=== PATIENT | male | born 1995 | race Caucasian/White ===

== ENCOUNTER 2017-06-08 12:26 | Emergency (ER) | payer OTHER ==
[2017-06-08 12:51] VITALS: BP 125/74; PULSE 73; TEMP 98.4; BMI 18.6
[2017-06-08] MEDS ORDERED: AZITHROMYCIN 1 GM PACKET PO ONE (13:42)
--- NOTE | 2017-06-08 13:48 | PDOC ---
History of Present Illness - General Chief Complaint: Pain Stated Complaint: PAIN Time Seen by Provider: 06/08/17 13:30 History Source: Patient Exam Limitations: No Limitations - History of Present Illness Travel History: No Initial Comments: 06/08/17 13:43 21 yr male states he had anal sex one week ago has continued pain, constipation and some mucous discharge. pt denies abd pain neg nvd neg fever. pt has history of multiple STD's was treated for syphilis last month . Timing/Duration: reports: constant Past History - Past Medical History Allergies/Adverse Reactions: Allergies Allergy/AdvReac Type Severity Reaction Status Date / Time No Known Allergies Allergy Verified 06/08/17 12:48 Home Medications: Ambulatory Orders Bisacodyl [Dulcolax] 5 mg PO DAILY #14 tablet.dr 06/08/17 Hydrocortisone Acetate [Anusol Hc Suppository -] 25 mg RC BID #10 supp.rect Other medical history: none - Suicide/Smoking/Psychosocial Hx Anxiety: No Suicidal Ideation: No Smoking History: Current every day smoker Have you smoked in the past 12 months: Yes Number of Cigarettes Smoked Daily: 6 Information on smoking cessation initiated: Yes 'Breaking Loose' booklet given: 06/08/17 Hx Alcohol Use: No Drug/Substance Use Hx: No Substance Use Type: None *Physical Exam - Vital Signs Last Vital Signs Temp Pulse Resp BP Pulse Ox 98.4 F 73 18 125/74 100 06/08/17 12:49 06/08/17 12:49 06/08/17 12:49 06/08/17 12:49 06/08/17 12:49 - Physical Exam HEENT: positive: EOMI, RICKEY, Normal ENT Inspection, Normal Voice, TMs Normal, Pharynx Normal Neck: positive: Supple Respiratory/Chest: positive: Lungs Clear, Normal Breath Sounds Cardiovascular: positive: Regular Rhythm, Regular Rate Gastrointestinal/Abdominal: positive: Normal Bowel Sounds, Soft. negative: Tender Male Genitalia: positive: normal genitalia. negative: discharge, testicular tenderness Rectal Exam: positive: normal rectal tone, other (scant amount of mucous clear yellow , no bleeding , no mass) Musculoskeletal: positive: Normal Inspection Extremity: positive: Normal Capillary Refill, Normal Inspection, Normal Range of Motion Integumentary: positive: Normal Color, Dry, Warm Neurologic: positive: Fully Oriented, Alert, Normal Mood/Affect, Normal Response , Motor Strength 5/5 Medical Decision Making - Medical Decision Making 06/08/17 14:52 cc: anal pain and discharge after having anal sex last week pt has history of std's in the past. pt denies abd pain has sex with other men will check for HIV, std's 06/08/17 15:02 I have discussed in detail the results of HIV test, pt is to follow at the [facility] for follow up pt agrees with plan all questions asked and answered. 06/11/17 07:09 *DC/Admit/Observation/Transfer Diagnosis at time of Disposition: Engages in insertive anal sexual practice, Possible exposure to STD, Anal discharge Constipation Qualifiers: Constipation type: other constipation type Qualified Code(s): K59.09 - Other constipation - Discharge Dispostion Disposition: HOME Condition at time of disposition: Good - Prescriptions Prescriptions: Hydrocortisone Acetate [Anusol Hc Suppository -] 25 mg RC BID #10 supp.rect Bisacodyl [Dulcolax] 5 mg PO DAILY #14 tablet.dr - Referrals Referrals: [facility] [Provider Group] [facility] [Provider Group] - Patient Instructions Printed Discharge Instructions: HIV Antibody Additional Instructions: 06/08/17 1. As discussed, a screening test for the HIV virus was performed today as per [facility] requirements. The preliminary results of your HIV test are Positive, which means you may have HIV. 2. The blood sample that was obtained will be sent out for further testing and confirmation. A confirmed Positive result is indicative of HIV infection, which is currently a lifelong condition. 3. As discussed, all test results are completely confidential. The results of your testing will not be released without your prior authorization. The law protects you from discrimination based on your HIV status. 4. As discussed, there are many benefits to antiretroviral therapy (ART) including suppressing the viral load. 5. As per the [facility] Department of Health, we have arranged for a follow-up appointment for medical care given your preliminary HIV positive results. If you were previously HIV positive and lost access to medical care, please use this referral as it is important to restart medical care. 6. As discussed, you must immediately adopt behavior changes to prevent HIV transmission to others (avoid unprotected sex or needle-sharing). 7. By law, any sex or needle-sharing partners that may have been exposed to HIV must be notified and they need to be tested. At risk partners can seek testing from their Primary Care Providers or they can go to https:// special delivery worker.aids.gov/ - Find HIV Testing Sites & Care Services - AIDS.gov. Enter a zip code to find a service facility near them. use the suppository as prescribed take dulcolax as prescribed for constipation drink at least 2 liters of water always use condoms during sexual activity follow with the [facility] for follow up this week if symptoms worsen or persist return to ER if any bloody diarrhea vomiting , severe pain or other concerns
[2017-06-08 14:06] LABS: URINE APPEARANCE SLCLOUDY; URINE BILIRUBIN NEGATIVE (NEGATIVE); URINE BLOOD NEGATIVE (NEGATIVE); URINE COLOR AMBER; URINE GLUCOSE (UA) NEGATIVE (NEGATIVE); URINE KETONE NEGATIVE (NEGATIVE); URINE LEUK ESTERASE NEGATIVE (NEGATIVE); URINE NITRITE NEGATIVE (NEGATIVE); URINE PROTEIN NEGATIVE (NEGATIVE)
[2017-06-08 14:48] LABS: HIV 1 AGp24 NEGATIVE
[2017-06-08 14:50] LABS: HIV 1 & 2 AB PRELIMINARY POSITIVE
[2017-06-10 08:10] LABS: CHLA.TRACHOMATI Negative (Negative)
== END 2017-06-08 15:08 | disposition home or self-care (01) ==
LOC: JERFT 12:26
DX: K62.89 Other specified diseases of anus and rectum (principal); K59.00 Constipation, unspecified; Z11.3 Encounter for screening for infections with a predominantly sexual mode of transmission
CPT/HCPCS: 36415; 80074; 81003; 87086; 87389; 87491; 87591; 99281-25

== ENCOUNTER 2017-06-13 08:56 | Emergency (ER) | payer OTHER ==
[2017-06-13 09:24] VITALS: TEMP 98; BMI 18.6
--- NOTE | 2017-06-13 10:01 | PDOC ---
History of Present Illness - General Chief Complaint: Pain Stated Complaint: PERSONAL Time Seen by Provider: 06/13/17 09:39 Past History - Past Medical History Allergies/Adverse Reactions: Allergies Allergy/AdvReac Type Severity Reaction Status Date / Time No Known Allergies Allergy Verified 06/13/17 09:16 Home Medications: Ambulatory Orders Bisacodyl [Dulcolax] 5 mg PO DAILY #14 tablet.dr 06/08/17 Hydrocortisone Acetate [Anusol Hc Suppository -] 25 mg RC BID #10 supp.rect Asthma: Yes Psychiatric Problems: Yes (depression, bipolar) - Suicide/Smoking/Psychosocial Hx Smoking History: Current every day smoker Have you smoked in the past 12 months: Yes Number of Cigarettes Smoked Daily: 9 Information on smoking cessation initiated: Yes 'Breaking Loose' booklet given: 06/13/17 Hx Alcohol Use: Yes Drug/Substance Use Hx: No Substance Use Type: None *Physical Exam - Vital Signs Last Vital Signs Temp Pulse Resp BP Pulse Ox 98 F 68 20 109/63 100 06/13/17 09:17 06/13/17 09:17 06/13/17 09:17 06/13/17 09:17 06/13/17 09:17
--- NOTE | 2017-06-13 10:40 | PDOC ---
Attending Attestation - Resident Resident Name: JosraePorter - ED Attending Attestation I have performed the following: I have examined & evaluated the patient, The case was reviewed & discussed with the resident, I agree w/resident's findings & plan, Exceptions are as noted - HPI HPI: 21 yo M recently diagnosed with HIV (has outpatient f/u in [facility] on 06/16) presenting with anal pain and discharge. He states he had anal intercourse, suspected a tear. Denies any bleeding. He has only appreciated some white discharge. He was tested for GC/Chlamydia on prior ED visit, negative. Denies abd pain, fever, chills. - Physicial Exam PE: GENERAL: Awake, alert, and fully oriented, in no acute distress HEAD: No signs of trauma EYES: PERRLA, EOMI, sclera anicteric, conjunctiva clear ENT: Auricles normal inspection, hearing grossly normal, nares patent, oropharynx clear without exudates. Moist mucosa NECK: Normal ROM, supple, no lymphadenopathy, JVD, or masses LUNGS: Breath sounds equal, clear to auscultation bilaterally. No wheezes, and no crackles HEART: Regular rate and rhythm, normal S1 and S2, no murmurs, rubs or gallops ABDOMEN: Soft, nontender, normoactive bowel sounds. No guarding, no rebound. No masses EXTREMITIES: Normal range of motion, no edema. No clubbing or cyanosis. No cords , erythema, or tenderness NEUROLOGICAL: Cranial nerves II through XII grossly intact. Normal speech, normal gait SKIN: Warm, Dry, normal turgor, no rashes or lesions noted. - Medical Decision Making CT pelvis obtained to r/o abscess. Results reviewed with Dr. Faust. As the abscess appears to already be draining, there is no acute management. Recommended PO augmentin. Outpatient f/u.
--- NOTE | 2017-06-13 10:59 | PDOC ---
History of Present Illness - General Chief Complaint: Pain Stated Complaint: PERSONAL Time Seen by Provider: 06/13/17 09:39 History Source: Patient Exam Limitations: No Limitations - History of Present Illness Initial Comments: 06/13/17 10:51 The patient is a 21M with a PMH of HIV who presents with anal pain and discharge. The patient states that he had anal sex with a new partner and thinks that he was torn. He also states that there is a white discharge that is coming out of his rectum. He was discharged from our facility within the past week and was treated for suspected GC/Chlamydia. He denies penile discharge, dysuria. This has never happened before. He has previously had chlamydia and it presented the same. GC/Chla testing negative when presented to [facility]. The discharge has been constant since friday and has not gotten better. He has an appointment at the [facility] Friday. He was also diagnosed with HIV on his last presentation. Soc: transgender; smokes 4 blunts a day and recently started drinking as a coping mechanism Past History - Past Medical History Allergies/Adverse Reactions: Allergies Allergy/AdvReac Type Severity Reaction Status Date / Time No Known Allergies Allergy Verified 06/13/17 09:16 Home Medications: Ambulatory Orders Amoxicillin/Potassium Clav [Augmentin 875-125 Tablet] 1 tab PO BID #14 tablet Asthma: Yes Psychiatric Problems: Yes (depression, bipolar) - Suicide/Smoking/Psychosocial Hx Smoking History: Current every day smoker Have you smoked in the past 12 months: Yes Number of Cigarettes Smoked Daily: 9 Information on smoking cessation initiated: Yes 'Breaking Loose' booklet given: 06/13/17 Hx Alcohol Use: Yes Drug/Substance Use Hx: No Substance Use Type: None Review of Systems - Review of Systems Able to Perform ROS?: Yes Is the patient limited Slovenian proficient: No Constitutional: No: Chills, Fever HEENTM: No: Throat Pain, Throat Swelling Respiratory: No: Cough, Shortness of Breath Cardiac (ROS): No: Chest Pain, Irregular Heart Rate, Chest Tightness ABD/GI: Yes: Other (rectal discharge). No: Constipated, Diarrhea, Nausea, Rectal Bleeding, Vomiting : No: Burning, Dysuria, Discharge, Pain, Urgency, Lesions Musculoskeletal: No: Back Pain Integumentary: No: Rash Neurological: No: Headache, Numbness, Tingling, Weakness *Physical Exam - Vital Signs Last Vital Signs Temp Pulse Resp BP Pulse Ox 98 F 68 20 109/63 100 06/13/17 09:17 06/13/17 09:06/13/17 09:06/13/17 09:06/13/17 09:17 - Physical Exam General Appearance: Yes: Nourished, Appropriately Dressed. No: Apparent Distress HEENT: positive: Normal Voice, Hearing Grossly Normal Respiratory/Chest: positive: Rales (in L upper lung field). negative: Chest Tender, Lungs Clear, Normal Breath Sounds, Respiratory Distress, Paradoxal Breathing, Crackles Cardiovascular: positive: Regular Rhythm, Regular Rate, S1, S2. negative: Diastolic Murmur, Systolic Murmur Gastrointestinal/Abdominal: positive: Flat, Soft. negative: Tender, Distended, Guarding, Rebound, Tenderness, Hernia Rectal Exam: positive: normal exam, normal rectal tone, other (no anal tears noted, no blood noted). negative: decreased tone, hemorrhoids Musculoskeletal: negative: CVA Tenderness, CVA Tenderness (R), CVA Tenderness (L ) Extremity: negative: Swelling, Calf Tenderness Integumentary: positive: Dry, Warm Neurologic: positive: Fully Oriented, Alert, Normal Mood/Affect, Normal Response , Motor Strength 5/5, Respond to painful stimul ED Treatment Course - LABORATORY CBC & Chemistry Diagram: 06/13/17 11:02 06/13/17 11:02 - RADIOLOGY Radiology Studies Ordered: Category Date Time Status PELVIS CT WITH CONTRAST [CT] Stat CT Scan 06/13/17 10:49 Ordered CHEST PA & LAT [RAD] Stat Radiology 06/13/17 10:49 Ordered Medical Decision Making - Medical Decision Making 06/13/17 11:02 The patient is a 21M with a PMH of HIV who presents to the ED with rectal discharge following anal sex. The patient had a negative GC/Chla test on his last visit within the last week but was treated with abx based on his clinical presentation. Pending labs/imaging and will reassess. 06/13/17 13:24 CT scan shows rectal/anal abscess which is likely what is draining and what the patient is seeing when he defecates. The patient was made aware of these findings and states that he wants to leave. I instructed the patient that it is not in his best interests for his health to leave. He said he will wait a little while longer and leave. 06/13/17 13:31 I will prescribe the patient augmentin for the draining abscess and recommend a PCP for follow up. *DC/Admit/Observation/Transfer Diagnosis at time of Disposition: Abscess, Anal discharge, Possible exposure to STD, Engages in insertive anal sexual practice - Discharge Dispostion Disposition: HOME Condition at time of disposition: Stable Admit: No - Prescriptions Prescriptions: Amoxicillin/Potassium Clav [Augmentin 875-125 Tablet] 1 tab PO BID #14 tablet - Patient Instructions Printed Discharge Instructions: Anal Abscess, DI for Anal Abscess Additional Instructions: Please return to the ER if symptoms persist, worsen, or if new symptoms arise. Please follow up with your infectious disease doctor and ask them for a recommendation for a primary care physician. If not, please call [facility] for a recommendation. If you start feeling severe pain, fever, chills, nausea, or vomiting, please return to the ER. Please abstain for anal intercourse until your infection has resolved. Please take your antibiotics as prescribed for 7 days.
[2017-06-13 11:07] LABS: MCH 31.2 pg (25.7-33.7); MCHC 34.4 g/dl (32.0-35.9); MEAN CELL VOLUME 90.8 fl (80-96); MEAN PLT VOLUME 6.9 fl (7.5-11.1); PLATELET COUNT 195 K/MM3 (134-434); RDW 13.1 % (11.9-15.9); WHITE BLOOD COUNT 3.6 K/mm3 (4.0-10.0)
[2017-06-13 11:36] LABS: ALBUMIN 4.2 g/dl (3.4-5.0); ANION GAP 7 (8-16); BILIRUBIN,TOTAL 0.5 mg/dL (0.2-1.0); CALCIUM 9.1 mg/dL (8.5-10.1); CO2 26 mmol/L (21-32); CREATININE 0.8 mg/dL (0.7-1.3); GLUCOSE,RANDOM 98 mg/dL (74-106); SGOT/AST 17 U/L (15-37); SGPT/ALT 20 U/L (12-78); TOT PROT 7.3 g/dl (6.4-8.2)
[2017-06-13 11:37] LABS: ALK PHOS 70 U/L (45-117)
[2017-06-13 12:53] LABS: PLATELET ESTIMATE ADEQUATE (NORMAL); TOTAL CELLS COUNTED 100
[2017-06-13 12:54] LABS: BASOPHIL (MANUAL) 3 % (0-2.0)
[2017-06-13] MEDS ORDERED: AMOX TR/POT CLAV 875MG/125MG TABLETS (FP) ONE (14:19)
[2017-06-13] MEDS ORDERED: AMOX TR/POT CLAV 875MG/125MG TABLETS (FP) PO ONE (14:19)
[2017-06-13 14:38] VITALS: BP 106/56; PULSE 71
== END 2017-06-13 14:38 | disposition home or self-care (01) ==
LOC: JER 08:56
DX: K61.0 Anal abscess (principal); Z77.21 Contact with and (suspected) exposure to potentially hazardous body fluids; Z72.52 High risk homosexual behavior; Z21 Asymptomatic human immunodeficiency virus [HIV] infection status
CPT/HCPCS: 36415; 71020-TC; 72193-TC; 80053; 85025; 99282-25

== ENCOUNTER 2017-07-23 14:31 | Emergency (ER) | payer OTHER ==
[2017-07-23 14:42] VITALS: BP 141/89; PULSE 105; TEMP 99.3; BMI 18.6
--- NOTE | 2017-07-23 14:47 | PDOC ---
Rapid Medical Evaluation Chief Complaint: Abscess Boil Time Seen by Provider: 07/23/17 14:36 Medical Evaluation: Allergies Allergy/AdvReac Type Severity Reaction Status Date / Time No Known Allergies Allergy Verified 07/23/17 14:43 Vital Signs Temp Pulse Resp BP Pulse Ox 99.3 F 105 H 16 141/89 97 07/23/17 14:37 07/23/17 14:37 07/23/17 14:37 07/23/17 14:37 07/23/17 14:37 07/23/17 14:45 I have performed a brief in-person evaluation of this patient. The patient presents with a chief complaint of: Biological male transgendering to female, HIV not on meds, unknown cd4/vl, here w/ possible perirectal abscess w/ subjective fever last night. Was tx w/ abx for same 1 month ago in ED. No I& D at the time per pt Pertinent physical exam findings:Rectal exam deferred to main ED provider I have ordered the following:cbc/chem/T&S/coags The patient will proceed to the ED for further evaluation.
[2017-07-23 16:29] LABS: BASOPHIL 0.4 % (0-2.0); EOSINOPHIL 0.1 % (0-4.5); MCH 30.7 pg (25.7-33.7); MCHC 34.8 g/dl (32.0-35.9); MEAN CELL VOLUME 88.2 fl (80-96); MEAN PLT VOLUME 7.7 fl (7.5-11.1); PLATELET COUNT 204 K/MM3 (134-434); RDW 12.5 % (11.9-15.9); WHITE BLOOD COUNT 10.6 K/mm3 (4.0-10.0)
[2017-07-23 16:56] LABS: ALBUMIN 4.4 g/dl (3.4-5.0); ANION GAP 7 (8-16); BILIRUBIN,TOTAL 0.8 mg/dL (0.2-1.0); CALCIUM 9.1 mg/dL (8.5-10.1); CO2 29 mmol/L (21-32); GLUCOSE,RANDOM 84 mg/dL (74-106); SGOT/AST 14 U/L (15-37); SGPT/ALT 24 U/L (12-78)
[2017-07-23 16:57] LABS: ALK PHOS 95 U/L (45-117); TOT PROT 8.4 g/dl (6.4-8.2)
--- NOTE | 2017-07-23 17:35 | PDOC ---
History of Present Illness - General Chief Complaint: Abscess Boil Stated Complaint: RENAL CYST REMOVAL Time Seen by Provider: 07/23/17 14:36 - History of Present Illness Initial Comments: 07/23/17 17:24 The patient is a 21 year old male with a history of HIV unknown cd4 who presents for evaluation of a rectal abscess. The patient was seen in the ED 1 month ago for the same complaints. The patient at that time reported whitish drainage from his rectum with defecation and was found to have a rectal abscess on CT scan. Surgery was consulted at that time and it was determined that the patient could be managed on outpatient antibiotics. The patient was also diagnosed with HIV at that time and has not been able to follow up in the [place] [facility] yet. The patient states that he has continued symptoms since his last visit the ED and completing his course of antibiotics and reports subjective fevers 1 day ago prompting his presentation to the ED today. The patient denies chills, SOB, chest pain, abdominal pain, nausea, vomiting, or changes with urination. Past History - Past Medical History Allergies/Adverse Reactions: Allergies Allergy/AdvReac Type Severity Reaction Status Date / Time No Known Allergies Allergy Verified 07/23/17 14:43 Home Medications: Ambulatory Orders Amoxicillin/Potassium Clav [Augmentin 875-125 Tablet] 1 tab PO BID #14 tablet Asthma: Yes COPD: No Psychiatric Problems: Yes (depression, bipolar) - Suicide/Smoking/Psychosocial Hx Smoking History: Current every day smoker Have you smoked in the past 12 months: Yes Number of Cigarettes Smoked Daily: 10 Information on smoking cessation initiated: No 'Breaking Loose' booklet given: 06/13/17 Hx Alcohol Use: No Drug/Substance Use Hx: Yes Substance Use Type: Marijuana Review of Systems - Review of Systems Comments:: 07/23/17 17:35 Constitutional: Fevers. No chills, fatigue, malaise HEENT: No Rhinorrhea, nasal congestion, visual changes Cardiovascular: No chest pain, syncope, palpitations, lightheadedness Respiratory: No Cough, SOB, Hemoptysis, Gastrointestinal: White pus drainage from rectum. No Abdominal pain, Nausea, Vomiting, Constipation, Diarrhea, Melena Genitourinary: No Dysuria, Frequency, Urgency, Hesitancy, Hematuria, Flank pain Musculoskeletal: No Myalgia, arthralgia Skin: No rashes, bruising, pallor Neurologic: No Headache, Dizziness, Numbness, Weakness, or Tingling Psychiatric: No Hallucinations. No SI or HI *Physical Exam - Vital Signs Last Vital Signs Temp Pulse Resp BP Pulse Ox 99.3 F 105 H 16 141/89 97 07/23/17 14:37 07/23/17 14:37 07/23/17 14:37 07/23/17 14:37 07/23/17 14:37 - Physical Exam Comments: 07/23/17 17:36 General Appearance: Nourished. No Apparent Distress HEENT: EOMI, RICKEY. Neck: No Cervical Lymphadenopathy Respiratory/Chest: Lungs Clear, Normal Breath Sounds. No Crackles, Rales, Rhonchi, Wheezing Cardiovascular: Regular Rhythm, Regular Rate. No Murmur, Gallops, Rubs Gastrointestinal/Abdominal: Normal Bowel Sounds, Soft. No Guarding, Rebound, Tenderness Rectal Exam: Normal external exam. Normal rectal tone. No obvious signs of abscess. Musculoskeletal: No CVA Tenderness Extremity: Normal Capillary Refill Integumentary: Normal Color, Dry, Warm Neurologic: Fully Oriented, Alert, Normal Mood/Affect, Normal Response, ED Treatment Course - LABORATORY CBC & Chemistry Diagram: 07/23/17 15:28 07/23/17 15:28 - ADDITIONAL ORDERS Additional order review: Laboratory Results 07/23/17 07/23/17 15:28 15:28 PT with INR Cancelled INR Cancelled Sodium 136 Potassium 3.8 Chloride 100 Carbon Dioxide 29 Anion Gap 7 L BUN 10 D Creatinine 1.0 D Creat Clearance w eGFR > 60 Random Glucose 84 Calcium 9.1 Total Bilirubin 0.8 D AST 14 L ALT 24 Alkaline Phosphatase 95 D Total Protein 8.4 H Albumin 4.4 07/23/17 15:28 RBC 5.18 MCV 88.2 MCHC 34.8 RDW 12.5 MPV 7.7 D Neutrophils % 71.0 Lymphocytes % 16.6 Monocytes % 11.9 H Eosinophils % 0.1 Basophils % 0.4 - RADIOLOGY Radiology Studies Ordered: Category Date Time Status ABDOMEN & PELVIS CT WITH CONTR [CT] Stat CT Scan 07/23/17 17:19 Ordered Medical Decision Making - Medical Decision Making 07/23/17 17:37 The patient is a 21 year old male with a history of HIV unknown cd4 who presents for evaluation of a rectal abscess. Given the patient's known history of a rectal abscess, it is likely his continued symptoms are due to the rectal abscess not responding to PO antibiotics. We will obtain a cbc, cmp, inr, lactate, blood cultures to evaluate further. We will obtain a ct a/p to evaluate the extend and for any progression of the abscess. We will continue to monitor and reassess. 07/23/17 18:00 The patient wishes to leave [facility] before further imaging. We discussed the risk with leaving without further evaluation including sepsis, , permanent organ damage. The patient continued to wish to leave [facility]. We discussed that we strongly recommended that he stay for further work up and the patient continued to wish to leave [facility]. We discussed that the patient must call to follow up with his primary care provider to be evaluated within the next 1-3 days. The patient voiced understanding and continued to wish to leave [facility]. The patient is alert, oriented x3 and ambulatory without difficulty and capable of making his own decisions. 07/23/17 18:24 Patient left before receiving any discharge paperwork after [facility] discussion. *DC/Admit/Observation/Transfer Diagnosis at time of Disposition: Anal discharge - Discharge Dispostion Disposition: AGAINST MEDICAL ADVICE Condition at time of disposition: Good Admit: No - Referrals Referrals: Em Almazan [Primary Care Provider] - - Patient Instructions Printed Discharge Instructions: DI for Anal Abscess Additional Instructions: Please return to the ER immediately if you have worsening fevers, chills, or discharge. Please call to schedule a follow up appointment with your primary care provider in 2-3 days. Please tell them that you have instructions from the ER to have close follow up.
--- NOTE | 2017-07-23 19:00 | PDOC ---
Attending Attestation - Resident Resident Name: Saeed Brand - ED Attending Attestation I have performed the following: The case was reviewed & discussed with the resident, I agree w/resident's findings & plan - HPI HPI: 07/23/17 18:55 21 yo F with h/o perirectal abscess which was draining. taking augmentin. was sheduled to follow up wtih the [place] [facility] and primary clinc. has not followeed up with them yet. completed course of augmentin . and noted subjective fevers. no pain with bowel movement . whitish discharge from recturm. - Physicial Exam PE: 07/23/17 18:56 pt left [facility] prior to my examination - Medical Decision Making 07/23/17 18:57 plan: reevaluate with ct a/p r/o recurrent or worsening abscess. labs. pt refused to stay for ct and work up. left prior to my physical exam and ct . left without signing papers and receiving discharge papers.
== END 2017-07-23 18:00 | disposition left against medical advice (07) ==
LOC: JER 14:31
DX: K62.89 Other specified diseases of anus and rectum (principal); Z21 Asymptomatic human immunodeficiency virus [HIV] infection status; J45.909 Unspecified asthma, uncomplicated; F31.9 Bipolar disorder, unspecified; F17.210 Nicotine dependence, cigarettes, uncomplicated
CPT/HCPCS: 36415; 80053; 82272; 85025; 86850; 86900; 86901; 99282-25

== ENCOUNTER 2017-07-24 12:14 | Emergency (ER) | payer OTHER ==
[2017-07-24 12:20] VITALS: BMI 18.6
[2017-07-24] MEDS ORDERED: SODIUM CHLORIDE 1,000 ML IV STA (14:25)
[2017-07-24 14:47] LABS: BASOPHIL 1.1 % (0-2.0); EOSINOPHIL 0.3 % (0-4.5); MCHC 34.5 g/dl (32.0-35.9); MEAN CELL VOLUME 86.9 fl (80-96); MEAN PLT VOLUME 6.8 fl (7.5-11.1); NEUTROPHILS 60.1 % (42.8-82.8); PLATELET COUNT 198 K/MM3 (134-434); RDW 12.7 % (11.9-15.9); WHITE BLOOD COUNT 7.8 K/mm3 (4.0-10.0)
[2017-07-24 15:01] LABS: INR 1.15 (0.82-1.09)
[2017-07-24 15:10] LABS: ALBUMIN 4.1 g/dl (3.4-5.0); ALK PHOS 82 U/L (45-117); ANION GAP 9 (8-16); BILIRUBIN,TOTAL 0.7 mg/dL (0.2-1.0); CALCIUM 8.6 mg/dL (8.5-10.1); CO2 25 mmol/L (21-32); CREATININE 1.2 mg/dL (0.7-1.3); GLUCOSE,RANDOM 94 mg/dL (74-106); SGOT/AST 13 U/L (15-37); SGPT/ALT 21 U/L (12-78)
--- NOTE | 2017-07-24 16:14 | PDOC ---
History of Present Illness - General Chief Complaint: Pain Stated Complaint: REVISIT, FOLLOW UP Time Seen by Provider: 07/24/17 13:55 - History of Present Illness Initial Comments: 07/24/17 16:08 "The patient is a 21 year old male with a history of HIV+ unknown cd4, not on HAART, who presents for evaluation of rectal pain. Pt reports that he had a perirectal abscess diagnosed on CT 1 month ago. Was tx'ed with abx, which alleviated his symptoms significantly. However, since then, he has had recurrence of his rectal pain. Pt notes occasional purulent discharge in his stool. Denies F/C. Denies abdominal pain. Denies dysuria. The patient was seen in the ED yesterday but left before CT could be obtained. The patient denies chills, SOB, chest pain, abdominal pain, nausea, vomiting, or changes with urination. " Past History - Past Medical History Allergies/Adverse Reactions: Allergies Allergy/AdvReac Type Severity Reaction Status Date / Time No Known Allergies Allergy Verified 07/24/17 12:21 Home Medications: Ambulatory Orders NK [No Known Home Medication] 07/24/17 Asthma: Yes COPD: No Psychiatric Problems: Yes (depression, bipolar) - Suicide/Smoking/Psychosocial Hx Smoking History: Current every day smoker Have you smoked in the past 12 months: Yes Number of Cigarettes Smoked Daily: 10 Information on smoking cessation initiated: No 'Breaking Loose' booklet given: 06/13/17 Hx Alcohol Use: No Drug/Substance Use Hx: Yes Substance Use Type: Marijuana Review of Systems - Review of Systems Comments:: 07/24/17 16:12 "GENERAL/CONSTITUTIONAL: No fever or chills. No weakness. HEAD, EYES, EARS, NOSE AND THROAT: No change in vision. No ear pain or discharge. No sore throat. CARDIOVASCULAR: No chest pain or shortness of breath. RESPIRATORY: No cough, wheezing, or hemoptysis. GASTROINTESTINAL: +rectal pain. No nausea, vomiting, diarrhea or constipation. GENITOURINARY: No dysuria, frequency, or change in urination. MUSCULOSKELETAL: No joint or muscle swelling or pain. No neck or back pain. SKIN: No rash NEUROLOGIC: No headache, vertigo, loss of consciousness, or change in strength/ sensation. ENDOCRINE: No increased thirst. No abnormal weight change. HEMATOLOGIC/LYMPHATIC: No anemia, easy bleeding, or history of blood clots. ALLERGIC/IMMUNOLOGIC: No hives or skin allergy. " *Physical Exam - Vital Signs Last Vital Signs Temp Pulse Resp BP Pulse Ox 99.1 F 112 H 18 128/81 98 07/24/17 12:17 07/24/17 12:17 07/24/17 12:17 07/24/17 12:17 07/24/17 12:17 - Physical Exam Comments: 07/24/17 16:12 "GENERAL: Awake, alert, and fully oriented, in no acute distress HEAD: No signs of trauma EYES: PERRLA, EOMI, sclera anicteric, conjunctiva clear ENT: Auricles normal inspection, hearing grossly normal, nares patent, oropharynx clear without exudates. Moist mucosa NECK: Nontender, no stepoffs, Normal ROM, supple, no lymphadenopathy, JVD, or masses LUNGS: Breath sounds equal, clear to auscultation bilaterally. No wheezes, and no crackles HEART: Regular rate and rhythm, normal S1 and S2, no murmurs, rubs or gallops ABDOMEN: Soft, nontender, normoactive bowel sounds. No guarding, no rebound. No masses RECTAL: no fissures, no perianal abscess, no fistulas, no external hemorrhoids : no penile lesions, no scrotal masses or tenderness EXTREMITIES: Normal range of motion, no edema. No clubbing or cyanosis. No cords, erythema, or tenderness NEUROLOGICAL: Cranial nerves II through XII intact. 5/5 strength and sensation in all extremities, Normal speech, normal gait SKIN: Warm, Dry, normal turgor, no rashes or lesions noted." ED Treatment Course - LABORATORY CBC & Chemistry Diagram: 07/24/17 14:40 07/24/17 14:40 - ADDITIONAL ORDERS Additional order review: Laboratory Results 07/24/17 07/24/17 07/24/17 14:40 14:40 14:40 PT with INR 13.00 H INR 1.15 H PTT (Actin FS) Sodium Potassium Chloride Carbon Dioxide Anion Gap BUN Creatinine Creat Clearance w eGFR Random Glucose Lactic Acid 0.8 Calcium Total Bilirubin AST ALT Alkaline Phosphatase Total Protein Albumin Blood Type A POSITIVE Antibody Screen Negative 07/24/17 07/24/17 14:40 14:20 PT with INR INR PTT (Actin FS) 37.1 H Sodium 138 Potassium 3.9 Chloride 104 Carbon Dioxide 25 Anion Gap 9 BUN 14 D Creatinine 1.2 Creat Clearance w eGFR > 60 Random Glucose 94 Lactic Acid Calcium 8.6 Total Bilirubin 0.7 AST 13 L ALT 21 Alkaline Phosphatase 82 Total Protein 8.0 Albumin 4.1 Blood Type Antibody Screen 07/24/17 14:40 RBC 5.06 MCV 86.9 MCHC 34.5 RDW 12.7 MPV 6.8 L D Neutrophils % 60.1 Lymphocytes % 24.6 D Monocytes % 13.9 H Eosinophils % 0.3 D Basophils % 1.1 - RADIOLOGY Radiology Studies Ordered: Category Date Time Status ABDOMEN & PELVIS CT WITH CONTR [CT] Stat CT Scan 07/24/17 14:20 Ordered - Medications Given in the ED: ED Medications Discontinued Medications Generic Name Dose Route Start Last Admin Trade Name Freq PRN Reason Stop Dose Admin Sodium Chloride 1,000 mls @ 1,000 mls/hr 07/24/17 14:25 07/24/17 14:50 Normal Saline - IV 07/24/17 15:24 1,000 mls/hr ASDIR STA Administration Medical Decision Making - Medical Decision Making 07/24/17 16:13 21 M with HIV not on HAART, h/o perirectal abscess 1 month ago managed with outpt abx, presenting with recurrent rectal pain and purulent discharge. Concerning for recurrent abscess. - Labs, cultures - CT pelvis w/ contrast - IVF, pain control - Surgery consult if needed
[2017-07-24 19:35] VITALS: BP 135/77; PULSE 81; TEMP 98.4
--- NOTE | 2017-07-24 20:27 | PDOC ---
*Physical Exam - Vital Signs Last Vital Signs Temp Pulse Resp BP Pulse Ox 98.4 F 81 17 135/77 98 07/24/17 19:35 07/24/17 19:35 07/24/17 19:35 07/24/17 19:35 07/24/17 19:35 - Physical Exam Comments: 07/24/17 20:14 heart rate 80, afebrile, vital signs normal. Well-appearing, seated in stretcher on his cell phone watching TV and listening to music Abdomen is benign exam is normal ED Treatment Course - LABORATORY CBC & Chemistry Diagram: 07/24/17 14:40 07/24/17 14:40 - ADDITIONAL ORDERS Additional order review: Laboratory Results 07/24/17 07/24/17 07/24/17 14:40 14:40 14:40 PT with INR 13.00 H INR 1.15 H PTT (Actin FS) Sodium Potassium Chloride Carbon Dioxide Anion Gap BUN Creatinine Creat Clearance w eGFR Random Glucose Lactic Acid 0.8 Calcium Total Bilirubin AST ALT Alkaline Phosphatase Total Protein Albumin Blood Type A POSITIVE Antibody Screen Negative 07/24/17 07/24/17 14:40 14:20 PT with INR INR PTT (Actin FS) 37.1 H Sodium 138 Potassium 3.9 Chloride 104 Carbon Dioxide 25 Anion Gap 9 BUN 14 D Creatinine 1.2 Creat Clearance w eGFR > 60 Random Glucose 94 Lactic Acid Calcium 8.6 Total Bilirubin 0.7 AST 13 L ALT 21 Alkaline Phosphatase 82 Total Protein 8.0 Albumin 4.1 Blood Type Antibody Screen 07/24/17 14:40 RBC 5.06 MCV 86.9 MCHC 34.5 RDW 12.7 MPV 6.8 L D Neutrophils % 60.1 Lymphocytes % 24.6 D Monocytes % 13.9 H Eosinophils % 0.3 D Basophils % 1.1 - Medications Given in the ED: ED Medications Discontinued Medications Generic Name Dose Route Start Last Admin Trade Name Freq PRN Reason Stop Dose Admin Sodium Chloride 1,000 mls @ 1,000 mls/hr 07/24/17 14:25 07/24/17 14:50 Normal Saline - IV 07/24/17 15:24 1,000 mls/hr ASDIR STA Administration Medical Decision Making - Medical Decision Making 07/24/17 20:14 Received signout on this 21-year-old transgender male to female preop with history of perirectal abscess who presents with rectal discomfort intermittently. Labs were within normal limits, CAT scan was ordered to rule out perirectal abscess. CAT scan showed no evidence of perirectal abscess, persistent perirectal lymphadenopathy which could be the source of the patient's discomfort which he describes as intermittent and worse after sitting for 20 minutes. CAT scan did show an elevated right testicle, so ultrasound was ordered to rule out torsion but this is inconsistent with the patient's clinical presentation, there is no scrotal pain or tenderness. The patient requested discharge, has to catch a bus at 8:40 PM to [place]. We' ll call if ultrasound results are abnormal, otherwise will follow-up with a category director in his new home. *DC/Admit/Observation/Transfer Diagnosis at time of Disposition: Anal or rectal pain - Discharge Dispostion Disposition: HOME Condition at time of disposition: Improved - Patient Instructions Printed Discharge Instructions: DI for Rectal Injury Additional Instructions: Activity as tolerated. Stay hydrated. Tylenol 1000 mg every 8 hours and/or ibuprofen 600 mg every 8 hours as needed for pain. Blood tests and a CAT scan showed no acute abnormalities, there is no abscess near the rectum. An ultrasound was also normal. There are some swollen lymph nodes around the rectum which could be the cause of your discomfort. Continue your medications as previously prescribed by your physician. You should follow up with a category director as soon as possible regarding today's emergency department visit. Return to the emergency department for any new or concerning symptoms, particularly persistent or worsening pain, bloody or purulent discharge, fevers or chills.
== END 2017-07-24 20:35 | disposition home or self-care (01) ==
LOC: JER 12:14 → JERBED 18:00 → UNDOADMOB 18:00 → JER 20:35
PROC: 3E0337Z Introduction of Electrolytic and Water Balance Substance into Peripheral Vein, Percutaneous Approach (ICD-10-PCS; principal; 2017-07-24)
DX: K62.89 Other specified diseases of anus and rectum (principal); Z21 Asymptomatic human immunodeficiency virus [HIV] infection status; F31.9 Bipolar disorder, unspecified; J45.909 Unspecified asthma, uncomplicated; F17.210 Nicotine dependence, cigarettes, uncomplicated
CPT/HCPCS: 36415; 74177-TC; 76870-TC; 80053; 83605; 85025; 85610; 85730; 86850; 86900; 86901; 87040; 99282-25

== ENCOUNTER 2024-01-09 12:25 | Emergency (ER) | payer OTHER ==
[2024-01-09 12:34] VITALS: BP 125/80; PULSE 88; RESP 18; TEMP 97.7; BMI 21.2
[2024-01-09] MEDS ORDERED: cefTRIAXone SODIUM 1 GM VIAL ONE (13:41)
[2024-01-09] MEDS ORDERED: DOXYCYCLINE HYCLATE 100 MG CAPSULE PO ONE (13:41)
[2024-01-09] MEDS: DOXYCYCLINE HYCLATE 100 MG CAPSULE PO ONE (13:52)
== END 2024-01-09 14:18 | disposition home or self-care (01) ==
LOC: EDSEX 12:25 → JER 12:25
DX: K62.89 Other specified diseases of anus and rectum (principal)
CPT/HCPCS: 36415; 87491; 87591; 87661; 99284-25